=== PATIENT | female | born 1960 | race Caucasian/White ===

== ENCOUNTER → 2018-02-17 | Outpatient (CLI) | payer BC ==
[2018-02-17 15:26] VITALS: BP 116/80; PULSE 82; RESP 18; TEMP 98.1; BMI 31.9
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
== END ==
LOC: WWCWWP 15:06
PROVIDERS: ATTEND Surgery
DX: Z53.9 Procedure and treatment not carried out, unspecified reason (principal)

== ENCOUNTER → 2018-03-17 | Day surgery (SDC) | payer BC ==
[2018-03-17 07:12] VITALS: PULSE 71; RESP 16; BMI 32.4
--- NOTE | 2018-03-17 08:54 | P.PCN ---
Date of Procedure: 03/17/18 Preoperative Diagnosis: Mammographic abnormality left breast Postoperative Diagnosis: Same Procedure(s) Performed: Left breast stereotactic core biopsy of upper outer quadrant increasing pleomorphic calcifications in the segmental distribution Anesthesia: local Surgeon: Kassandra Wilson Estimated Blood Loss (ml): 1 Pathology: other (Breast tissue) Condition: stable Disposition: same day Indications for Procedure: The patient is a 57-year-old white female who presented with a mammographic abnormality in her left breast. She was noted to have increasing pleomorphic calcifications in a segmental distribution in the upper outer quadrant area of the breast. The patient was seen in consultation and risks and benefits of stereotactic core biopsy were discussed with the patient. Of concern is the fact that the patient does have bilateral breast implants making the stereotactic procedure somewhat more challenging. The patient understands the risks and benefits and wishes to proceed. Operative Findings: Microcalcifications left breast Description of Procedure: The patient was taken to the stereotactic core room and positioned on the low rad table. It was determined to do a lateral to medial approach to target the area of concern. The area of concern was identified and stereo-pairs were obtained. The breast was prepped using Betadine. 1% lidocaine was used to anesthetize the area of concern. Approximately 20 mL of 1% lidocaine was utilized. A 9-gauge vacuum assisted rotating core biopsy needle was driven to the correct coordinates. Pre-and post-fire radiographs were obtained. 12 core specimens were obtained. Radiograph of the specimens revealed several small microcalcifications. The specimen was reviewed with radiology and we determined to take additional cores from the 3 to 9 o'clock position of the left breast. Radiograph of the additional cores did not reveal additional microcalcifications. It was felt that the area had been sampled and we would send the specimen for pathology and await their evaluation. A Top-Hat secure marilu clip was left in place and noted to be in the correct location. The patient tolerated the procedure in stable condition. Specimen was sent to pathology. The patient will follow up next week with Dr. Quinones.
[2018-03-17 09:36] VITALS: BP 122/77; TEMP 97.7
--- NOTE | 2018-03-17 11:25 | MM ---
EXAMINATION TYPE: MG stereo VAD BX LT DATE OF EXAM: 03/17/2018 COMPARISON: Outside examinations dating back to 03/15/2015 CLINICAL HISTORY: Left breast calcifications for which stereotactic biopsy was recommended. TECHNIQUE: Stereotactic guided core biopsy of left breast. FINDINGS: The procedure of stereotactic guided core biopsy was explained to the patient. Benefits, a lternatives, and risks were discussed. An informed consent was then obtained. Preprocedural timeout was performed. On prefire localization images during the procedure the majority of these calcifications were noted t o layer dependently with a teacup appearance compatible with benign milk of calcium. Posterior latera l calcifications were targeted that maintained a more rounded morphology. The shortness pathway for b iopsy was chosen. Calcifications are best identified on lateral to medial approach. I performed the l ocalization, then surgeon, Dr. Joni Edmondson performed the remainder of the procedure. A vacuum assiste d biopsy gun was used to obtain multiple core samples. The patient tolerated the procedure well without any immediate complication. The patient was kept in the radiology department for short stay after the procedure and then discharged home in stable condi tion. Targeted calcifications are identified in specimen mammogram. Post biopsy mammogram shows the clip to appear in satisfactory position relative to the targeted area of concern on the preprocedure images. IMPRESSION: SUCCESSFUL, UNCOMPLICATED STEREOTACTIC GUIDED CORE BIOPSY OF CALCIFICATIONS IN THE UPPER OUTER QUADRA NT OF THE LEFT BREAST, FULL PATHOLOGY RESULTS TO FOLLOW. OF NOTE THE MAJORITY OF THE CALCIFICATIONS DURING THE PROCEDURE APPEARED IS BENIGN MILK OF CALCIUM. BIOPSIED CALCIFICATIONS MAINTAINED A ROUNDED APPEARANCE THE ML VIEW AND ARE SLIGHTLY MORE SUSPICIOUS.
== END ==
LOC: RADMAMWWP 07:00
PROVIDERS: ATTEND Surgery
DX: N60.12 Diffuse cystic mastopathy of left breast (principal)
CPT/HCPCS: 88305; 19081; A4648; J2001

== ENCOUNTER → 2018-03-24 | Outpatient (CLI) | payer BC ==
[2018-03-24 10:23] VITALS: BP 109/71; PULSE 71; RESP 18; TEMP 97.8; BMI 32.1
--- NOTE | 2018-03-24 10:46 | P.PN ---
Subjective Progress Note Date: 03/24/18 Keyonna is a 57-year-old white female who is status [place] [id number]. Her pathology revealed fibrocystic changes including fibrosis and small cysts. She had 2 sites biopsied and both were benign as noted. No calcifications were identified in the specimens and on radiograph of this tissue blocks no residual microcalcifications were identified. Her case has been reviewed with radiology there is some thought that the area originally sampled might represent milk of calcium and therefore the radiographs specimen did not reveal calcifications. Keyonna has no complaints related to her recent biopsy. I discussed with she and her and her daughter that the specimen is of questionable adequacy. I have given them the option of a repeat stereo biopsy versus a needle local excisional biopsy. They do not want to undergo a repeat stereo biopsy. They wish to proceed with a needle localization and excisional biopsy of the area of concern. I discussed the risks and benefits of this procedure and they wish to proceed. Objective - Constitutional General appearance: Present: average body habitus - EENT Eyes: Present: EOMI ENT: Present: hearing grossly normal - Neck Neck: Present: normal ROM - Respiratory Respiratory: bilateral: CTA - Cardiovascular Rhythm: regular Heart sounds: normal: S1, S2 - Gastrointestinal General gastrointestinal: Present: soft - Integumentary Integumentary Comment(s): core biopsy site right breast mild ecchymosis no evidence of infection no hematoma - Psychiatric Psychiatric: Present: A&O x's 3, appropriate affect, intact judgment & insight - Labs Labs: Patient's mammogram again reviewed with radiology, Dr. Lou. The recommendation is for repeat sampling of the area of microcalcifications. Although this may represent milk of calcium a larger tissue specimen was recommended. I've also discussed the case with pathology who again states that no calcium was noted in the specimen. Assessment and Plan Assessment: Impression: 1. Radiographic abnormality left breast, pathologic findings felt to be discordant with radiographic findings 2. Patient doing well post-core biopsy Plan: 1. A needle localization excisional biopsy of area of concern in the left breast/we are interested in sampling the microcalcifications and not necessarily the area where the clip was left after the core biopsy Risk and benefits of the procedure were discussed with the patient and her family and they wish to proceed with a needle localization and open biopsy. There were given the option of a repeat stereo biopsy and declined. They understand the risks and benefits including bleeding and infection reaction to the anesthetic the possibility that the area may not be sampled and wished to proceed. They also understand that the patient has a implant in place and risk of injury to the implant. Cc:Dr. Jimenez
== END ==
LOC: WWCWWP 09:13
PROVIDERS: ATTEND Surgery
DX: Z53.9 Procedure and treatment not carried out, unspecified reason (principal)

== ENCOUNTER → 2018-04-07 | Outpatient (CLI) | payer BC ==
[2018-04-07 16:21] VITALS: BP 134/83; PULSE 63; RESP 18; TEMP 96.5; BMI 32.5
--- NOTE | 2018-04-07 16:28 | P.PN ---
Progress Note - Text Progress Note Date: 04/07/18 Keyonna is a 57-year-old white female who is status post her tactic core biopsy of the left breast on 03-24-18. The patient has noted that one of the biopsy sites is slightly elevated and there is concern that is the marker which is protruding. She comes in for evaluation today. She is scheduled for needle local excisional biopsy on [id number]. The patient is had no fever or chills. She does have some irritation at the site of the stereotactic biopsy area. Physical examination Examination of the stereotactic core site reveals a slight area of protuberance at one of the stereo sites. Attempts to grasp this with a forceps was not successful. This is very minimally elevated and any surface elevation of At the skin surface was trying to grasp this area. There is no evidence of any infection. Impression: 1. Status post her tactic core biopsy of the left breast the patient has the marker clip near the surface but not able to be grasped at this time Plan: 1. The patient is scheduled for needle local excisional biopsy of the area of concern in the left breast at that time we will be sure that this area is addressed with removal of the clip near the surface. CC:
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
== END ==
LOC: WWCWWP 15:23
PROVIDERS: ATTEND Surgery
DX: Z53.9 Procedure and treatment not carried out, unspecified reason (principal)

== ENCOUNTER 2018-04-26 08:49 | Day surgery (SDC) | payer BC ==
[2018-04-22 09:56] VITALS: BMI 32.1
[~2018-04-26 08:49] MED LIST: DEXAMETHASONE SOD PHOSPHATE 10 MG/ML 1 ML VIAL IV ONE; HYDROmorphone 0.5 MG/0.5 ML SYRINGE IVP PRN; LACTATED RINGERS 1,000 ML IV SCH; MIDAZOLAM (PF) 2 MG/2 ML VIAL IV PRN; ONDANSETRON 4 MG/2 ML VIAL IVP ONE; Pre Op ABX Message 1 EACH MISC MISCELLANE ONE; SCOPOLAMINE 1.5MG/72HR PATCH TRANSDERM ONE
[2018-04-26] MEDS ORDERED: LACTATED RINGERS 1,000 ML IV ONE (09:22)
[2018-04-26] MEDS ORDERED: LIDOCAINE 1% 20 ML VIAL (10MG/ML) FOR IV START INTRADERMA ONE (09:23)
[2018-04-26] MEDS ORDERED: ALPRAZolam 0.5 MG TAB PO ONE (09:28)
[2018-04-26] MEDS ORDERED: LIDOCAINE 1% INJ 10MG/ML (20 ML MDV) SQ ONE ×2 (10:45→13:35)
[2018-04-26] MEDS ORDERED: SODIUM BICARB 4% 5 ML VIAL (0.48 MEQ/ML) MISCELLANE ONE (10:45)
[2018-04-26] MEDS ORDERED: HEPARIN SODIUM,PORCINE 5,000 UNIT/ML 1 ML VIAL SQ ONE (11:53)
[2018-04-26] MEDS ORDERED: fentaNYL (PF) 50 MCG/ML 2 ML AMP ONE (13:18)
[2018-04-26] MEDS ORDERED: MIDAZOLAM 2 MG/2 ML VIAL ONE (13:18)
[2018-04-26] MEDS ORDERED: SUCCINYLCHOLINE CHLORIDE 100 MG/5 ML SYR IV ONE (13:18)
[2018-04-26] MEDS ORDERED: PROPOFOL 10 MG/ML 20 ML VIAL IV ONE (13:18)
[2018-04-26] MEDS ORDERED: LIDOCAINE 1% INJ 10MG/ML (20 ML MDV) ONE (13:18)
--- NOTE | 2018-04-26 14:09 | P.OP ---
Date of Procedure: 04/26/18 Preoperative Diagnosis: Discordant left breast core biopsy, skin lesion left breast has resolved, no skin biopsy will be done Postoperative Diagnosis: Same Procedure(s) Performed: Needle localization excisional biopsy left breast lesion Anesthesia: MAKENNA Surgeon: Kassandra Wilson Estimated Blood Loss (ml): 10 IV fluids (ml): 400 Pathology: other (Left breast tissue) Condition: stable Disposition: PACU Indications for Procedure: Patient had a stereotactic core biopsy for an area of concern in the left breast , pathology was felt to be discordant and therefore needle local excisional biopsy was recommended, patient initially had a skin lesion near the area of the core biopsy which has resolved and no skin biopsy will be performed Operative Findings: Dense breast tissue Description of Procedure: The patient was initially taken to the radiology department where needle localization of an area of concern in the left breast was performed. Patient was then brought to the operating room. The area of concern in the breast was prepped and draped in a sterile fashion following induction of general anesthesia. Wide excision of the area was performed. An additional section of tissue was taken in the posterior area. Hemostasis was attained using electrocautery device. The area was marked using titanium clips. The specimen was painted for orientation. The specimen was sent to x-ray to confirm that the area of concern had been obtained. After assured that hemostasis was attained the deep tissues were closed using 3-0 Vicryl suture. Was necessary to mobilize approximately a 3 x 3 cm area to facilitate adequate cosmesis. Again after assured that hemostasis was attained the skin was closed using a 4- 0 Monocryl. The patient tolerated the procedure in stable condition.
--- NOTE | 2018-04-26 14:11 | P.DS ---
Providers Attending physician: Kassandra Wilson Primary care physician: Marybel Jimenez Plan - Discharge Summary Discharge Rx Participant: Yes New Discharge Prescriptions: No Action No Known Home Medications Discharge Medication List No Known Home Medications 03/04/18 [History] Follow up Appointment(s)/Referral(s): Kassandra Wilson MD [STAFF PHYSICIAN] - 1 Week Activity/Diet/Wound Care/Special Instructions: Do not drive today Patient may shower after 48 hours Patient to wear bra until seen by Dr. Quinones next week except when in shower Discharge Disposition: HOME SELF-CARE
--- NOTE | 2018-04-26 14:21 | MM ---
EXAMINATION TYPE: MG pre op needle loc LT, MG surgical specimen LT DATE OF EXAM: 04/26/2018 COMPARISON: Prior stereotactic guided core biopsy March 17, 2018 and older outside mammograms. CLINICAL HISTORY: Benign stereotactic guided core biopsy March 17, 2018. Patient and/or surgeon requests excision despite benign results. TECHNIQUE: Needle localization with wire placement and surgical excision of area of concern in the right breast. FINDINGS: The procedure of needle localization with wire placement and than surgical excision was explained to the patient. Benefits, alternatives, and risks were discussed. An informed consent was then obtained. Patient brought supposed clip removed by surgeon at office. Specimen radiograph shows tiny radiodense focus but not metallic density to correspond to clip. Repeat mammogram confirms clip is still stable in position posterior upper outer aspect left breast. The shortest pathway for procedure was chosen. Shortest pathway was cranial approach. The overlying skin was prepped and draped in usual sterile fashion. Lidocaine buffered with bicarbonate was used as anesthetic into the skin and subcutaneous tissue up to the level of area of concern. A 5 cm needle was used. It was placed via a cranial approach under mammographic guidance. Subsequent 90 degrees mammogram show the needle to be in satisfactory position relative to the targeted area. At this point, wire was placed and the needle was withdrawn. The wire was fixed to patient's skin. Images were marked for surgeon. The patient tolerated the procedure well without any immediate complication. The patient was kept in the radiology department for short stay after the procedure and then taken to surgery for surgical excision. Targeted clip and wire are identified in separate specimen mammograms including some surrounding benign punctate calcifications. The patient was kept in hospital for short stay after the procedure and then discharged home in stable condition. IMPRESSION: Successful, uncomplicated needle localization with wire placement and surgical excision of targeted biopsy clip in the left breast, full pathology results to follow. Low index of suspicion noted at time of procedure. Pathology Results: Benign A. LEFT BREAST, NEEDLE LOCALIZATION EXCISION: Fibrocystic changes including cysts with intraluminal calcifications, fibrosis, apocrine metaplasia, adenosis and moderate usual type ductal hyperplasia. Previous biopsy site. B. LEFT BREAST, NEW POSTERIOR MARGIN, EXCISION: Fibrocystic changes including fibrosis and cysts. Previous biopsy site changes. Recommendation Follow up mammogram of the left breast in 6 months. SELVIN
[2018-04-26 14:27] VITALS: TEMP 96.8
[2018-04-26 14:34] VITALS: RESP 16
[2018-04-26] MEDS ORDERED: HYDROcodone/APAP 5-325MG 1 EACH TAB PO ONE (15:30)
[2018-04-26 15:55] VITALS: BP 152/90; PULSE 70
== END 2018-04-26 16:08 | disposition home or self-care (01) ==
LOC: OR 08:49
PROVIDERS: ATTEND Surgery
DX: R92.0 Mammographic microcalcification found on diagnostic imaging of breast (principal); N60.12 Diffuse cystic mastopathy of left breast; Z80.3 Family history of malignant neoplasm of breast; Z80.41 Family history of malignant neoplasm of ovary; Z85.820 Personal history of malignant melanoma of skin; Z78.0 Asymptomatic menopausal state; K21.9 Gastro-esophageal reflux disease without esophagitis
CPT/HCPCS: 19125; 19281; 81025; 88307; 76098; J2250; J1644; J1100; J2405; J2001; J3010; J0330; J2704

== ENCOUNTER → 2018-05-05 | Outpatient (CLI) | payer BC ==
[2018-05-05 10:32] VITALS: BP 125/85; PULSE 57; RESP 18; TEMP 97.8; BMI 32.1
--- NOTE | 2018-05-05 10:36 | P.PN ---
Subjective Progress Note Date: 05/05/18 Principal diagnosis: Fibrocystic breast changes Keyonna is a 57-year-old white female status post left breast. Stero-tactic biopsy after which it was recommended she undergo needle local excisional biopsy of area of concern in the left breast. This was performed on 04-26-18. The area of concern was felt to be adequately removed. Pathology was benign. The patient is doing well at this time without complaints. The patient does have a persistent left axillary fullness for which she has been evaluated in the past until there was a lipoma. Objective - Vital Signs Vital signs: Intake & Output 05/04/18 05/05/18 05/05/18 18:59 06:59 18:59 Weight 88.904 kg - Exam BMI 32.1 - Constitutional General appearance: Present: obese - EENT Eyes: Present: EOMI ENT: Present: hearing grossly normal - Respiratory Respiratory: - Cardiovascular Rhythm: regular Heart sounds: - Musculoskeletal Musculoskeletal: Present: gait normal - Psychiatric Psychiatric: Present: A&O x's 3, appropriate affect, intact judgment & insight - Additional findings Additional findings: Left breast: Incision clean and dry Assessment and Plan Assessment: Impression: 1. Fibrocystic changes left breast 2. Patient doing well status post left breast excisional biopsy 3. Probable lipoma under the left axilla Plan: 1. Patient will follow-up regarding left axillary soft tissue lesion in approximately 6 weeks 2. Patient doing well status post left breast biopsy 3. Left breast mammogram in 6 months time with physician exam at that time CC: Dr. Jimenez
== END | disposition home or self-care (01) ==
LOC: WWCWWP 09:29
PROVIDERS: ATTEND Surgery
DX: Z53.9 Procedure and treatment not carried out, unspecified reason (principal)

== ENCOUNTER 2018-05-31 10:31 | Day surgery (SDC) | payer BC ==
[~2018-05-31 10:31] MED LIST changes: +HEPARIN SODIUM,PORCINE 5,000 UNIT/ML 1 ML VIAL SQ ONE; -HYDROmorphone 0.5 MG/0.5 ML SYRINGE IVP PRN; +LIDOCAINE 1% 20 ML VIAL (10MG/ML) FOR IV START INTRADERMA PRN; -MIDAZOLAM (PF) 2 MG/2 ML VIAL IV PRN; +MIDAZOLAM 2 MG/2 ML VIAL IV PRN
[2018-05-31] MEDS ORDERED: LACTATED RINGERS 1,000 ML IV ONE ×2 (11:04→17:01)
[2018-05-31] MEDS ORDERED: HEPARIN SODIUM,PORCINE 5,000 UNIT/ML 1 ML VIAL SQ ONE (13:53)
[2018-05-31] MEDS ORDERED: MIDAZOLAM 2 MG/2 ML VIAL ONE (14:54)
[2018-05-31] MEDS ORDERED: ceFAZolin 1,000 MG VIAL ONE (14:54)
[2018-05-31] MEDS ORDERED: SUCCINYLCHOLINE CHLORIDE 100 MG/5 ML SYR IV ONE (14:54)
[2018-05-31] MEDS ORDERED: LIDOCAINE 1% INJ 10MG/ML (20 ML MDV) ONE (14:54)
[2018-05-31] MEDS ORDERED: fentaNYL (PF) 50 MCG/ML 2 ML AMP ONE (14:54)
[2018-05-31] MEDS ORDERED: PROPOFOL 10 MG/ML 20 ML VIAL IV ONE (14:54)
[2018-05-31] MEDS ORDERED: SODIUM CHLORIDE 0.9% 50 ML with ceFAZolin 2,000 MG IV ONE ×2 (15:25)
[2018-05-31] MEDS ORDERED: LIDOCAINE 1% INJ 10MG/ML (20 ML MDV) SQ ONE (16:17)
--- NOTE | 2018-05-31 16:18 | P.OP ---
Date of Procedure: 05/31/18 Preoperative Diagnosis: Soft tissue swelling under left arm Postoperative Diagnosis: Same Procedure(s) Performed: Excision lipomatous-like tissue under left arm Anesthesia: MAKENNA Surgeon: Kassandra Wilson Estimated Blood Loss (ml): 5 IV fluids (ml): 700 Pathology: other (Tissue under her left arm) Condition: stable Disposition: PACU Indications for Procedure: Area of swelling under left arm felt to be most likely lipoma of concern to the patient, uncomfortable and of questionable change in size Operative Findings: Fibrofatty tissue consistent with lipoma Description of Procedure: The patient was taken to the operating room and following induction of anesthesia the left axilla and upper arm were prepped and draped in a sterile fashion. An incision was made over the area of palpable and visible swelling. Fatty tissue was identified. A lesion approximately 5 x 4 cm in size was removed. There was resolution of the area of swelling. After we were assured that hemostasis was attained the incision was closed using a 4-0 Monocryl. Skin was further reinforced with a 4-0 nylon. It was not possible to close the deeper tissue secondary to fatty tissue in this area. The patient tolerated the procedure in stable condition. All instrument and sponge counts were correct at the end of the case. The lesion was in the subcutaneous tissue and appeared to be consistent with lipomatous/fatty tissue. The area was approximately 5 x 4 cm in size.
--- NOTE | 2018-05-31 16:21 | P.DS ---
Providers Attending physician: Kassandra Wilson Primary care physician: Marybel Jimenez Plan - Discharge Summary Discharge Rx Participant: Yes New Discharge Prescriptions: No Action No Known Home Medications Discharge Medication List No Known Home Medications 03/04/18 [History] Follow up Appointment(s)/Referral(s): Kassandra Wilson MD [STAFF PHYSICIAN] - 1 Week Activity/Diet/Wound Care/Special Instructions: patient may shower after [address] tomorrow if not taking any opioid narcotics Discharge Disposition: HOME SELF-CARE
[2018-05-31 16:36] VITALS: TEMP 97.6
[2018-05-31] MEDS: HYDROmorphone 0.5 MG/0.5 ML SYRINGE IVP PRN ×2 (16:52→16:59)
[2018-05-31 17:05] VITALS: RESP 16
[2018-05-31 18:07] VITALS: BMI 33.2
[2018-05-31 18:30] VITALS: BP 126/79; PULSE 65
== END 2018-05-31 19:03 | disposition home or self-care (01) ==
LOC: OR 10:31 → 1SOBS 16:14 → OR 19:03
PROVIDERS: ATTEND Surgery
DX: R22.9 Localized swelling, mass and lump, unspecified (principal); K21.9 Gastro-esophageal reflux disease without esophagitis; Z79.899 Other long term (current) drug therapy
CPT/HCPCS: 11406; 81025; 88304; J2250; J1644; J1100; J2405; J0690 ×2; J2001; J3010; J0330; J2704; J1170

== ENCOUNTER → 2018-06-09 | Outpatient (CLI) | payer BC ==
[2018-06-09 16:08] VITALS: BP 113/78; PULSE 98; RESP 18; TEMP 97; BMI 32.1
--- NOTE | 2018-06-09 16:29 | P.PN ---
Progress Note - Text Progress Note Date: 06/09/18 Keyonna is a 57-year-old white female status post excision of a soft tissue lesion under the left arm on . Pathology was consistent with a lipoma. The patient is doing well at this time. Incision clean and dry no evidence of any infection well-healed Impression: 1. Lobulated adipose tissue consistent with lipoma left axillary area 2. Patient status post left breast biopsy which was benign Plan: 1. Repeat left breast mammogram related to biopsy in September with physician exam at that time 2. Patient to call sooner if she has any questions of concern CC: Dr. Jimenez
== END ==
LOC: WWCWWP 15:42
PROVIDERS: ATTEND Surgery
DX: Z53.9 Procedure and treatment not carried out, unspecified reason (principal)

== ENCOUNTER → 2018-10-25 | Outpatient (CLI) | payer BC ==
--- NOTE | 2018-10-26 09:16 | MM ---
Reason for exam: follow-up at short interval from prior study. Last mammogram was performed 9 months ago. History: Patient is postmenopausal. Family history of breast cancer in paternal grandmother at age 60. Benign MG pre op needle loc LT of the left breast, April 26, 2018. Benign MG stereo VAD BX LT of the left breast, March 17, 2018. Retro-pectoral saline implants in both breasts, 1994. Physical Findings: Nurse did not find any significant physical abnormalities on exam. MG Diag Mamm Implants SHANELL w CAD Bilateral CC, MLO, and ID view(s) were taken. Prior study comparison: January 14, 2018, mammogram. May 21, 2017, mammogram. May 12, 2017, mammogram. March 24, 2016, mammogram. March 15, 2015, mammogram. The breast tissue is heterogeneously dense. This may lower the sensitivity of mammography. No suspicious abnormality. Prepectoral saline implants. Post surgical change from benign excisional biopsy in the upper outer quadrant. These results were verbally communicated with the patient and result sheet given to the patient on 10/25/18. ASSESSMENT: Benign, BI-RAD 2 RECOMMENDATION: Routine screening mammogram of both breasts in 1 year.
== END | disposition home or self-care (01) ==
LOC: RADMAMWWP 11:01
PROVIDERS: ATTEND Surgery
DX: R92.8 Other abnormal and inconclusive findings on diagnostic imaging of breast (principal)
CPT/HCPCS: 77066

== ENCOUNTER → 2018-10-28 | Outpatient (CLI) | payer BC ==
[2018-10-28 10:54] VITALS: BP 135/85; PULSE 66; RESP 16; TEMP 97.8; BMI 33.1
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
== END | disposition home or self-care (01) ==
LOC: WWCWWP 10:40
PROVIDERS: ATTEND Surgery
DX: Z53.9 Procedure and treatment not carried out, unspecified reason (principal)

== ENCOUNTER → 2019-10-30 | Outpatient (CLI) | payer BC ==
--- NOTE | 2019-10-30 11:57 | MM ---
Reason for exam: additional evaluation requested from prior study. Last mammogram was performed 1 year ago. History: Patient is postmenopausal. Family history of breast cancer in paternal grandmother at age 60. Benign MG pre op needle loc LT of the left breast, April 26, 2018. Benign MG stereo VAD BX LT of the left breast, March 17, 2018. Retro-pectoral saline implants in both breasts, 1994. Physical Findings: Nurse did not find any significant physical abnormalities on exam. MG Diag Mamm Implants SHANELL w CAD Bilateral CC, MLO, and ID view(s) were taken. Prior study comparison: October 25, 2018, bilateral MG diag mamm implants SHANELL w CAD. May 12, 2017, mammogram. Finding: There are regional, fine calcifications in the upper quadrant, posterior position of the right breast, MLO view over profile appear to be present previously. Short term re-evaluation recommended may be better visualized current exam. Bilateral breast prothesis. These results were verbally communicated with the patient and result sheet given to the patient on 10/30/19. ASSESSMENT: Probably benign, BI-RAD 3 RECOMMENDATION: Follow-up diagnostic mammogram of the right breast in 6 months.
== END | disposition home or self-care (01) ==
LOC: RADMAMWWP 11:00
PROVIDERS: ATTEND Surgery
DX: R92.8 Other abnormal and inconclusive findings on diagnostic imaging of breast (principal); Z98.82 Breast implant status
CPT/HCPCS: 77066

== ENCOUNTER → 2019-11-10 | Outpatient (CLI) | payer BC ==
[2019-11-10 12:20] VITALS: BP 113/79; PULSE 60; RESP 18; TEMP 98.1
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
== END | disposition home or self-care (01) ==
LOC: WWCWWP 11:40
PROVIDERS: ATTEND Surgery
DX: Z53.9 Procedure and treatment not carried out, unspecified reason (principal)

== ENCOUNTER → 2020-05-02 | Outpatient (CLI) | payer BC ==
--- NOTE | 2020-05-02 12:10 | MM ---
Reason for exam: follow-up at short interval from prior study. Last mammogram was performed 6 months ago. History: Patient is postmenopausal. Family history of breast cancer in paternal grandmother at age 60. Benign MG pre op needle loc LT of the left breast, April 26, 2018. Benign MG stereo VAD BX LT of the left breast, March 17, 2018. Retro-pectoral saline implants in both breasts, 1994. Physical Findings: Nurse Summary: 1cm nodule in the right breast at 9 o'clock (nurse adam). MG 3D Diag Mammo Imp W/Cad RT CC, MLO, and ID view(s) were taken of the right breast. Prior study comparison: October 30, 2019, bilateral MG diag mamm implants SHANELL w CAD. October 25, 2018, bilateral MG diag mamm implants SHANELL w CAD. There are scattered fibroglandular densities. There is no dominant lesion. Subpectoral implant right breast. These results were verbally communicated with the patient and result sheet given to the patient on 05/02/20. ASSESSMENT: Incomplete: need additional imaging evaluation, BI-RAD 0 RECOMMENDATION: Ultrasound of the right breast. (palpable abnormality upper outer quadrant)
--- NOTE | 2020-05-02 12:11 | USB ---
Reason for exam: additional evaluation requested from abnormal screening. History: Patient is postmenopausal. Family history of breast cancer in paternal grandmother at age 60. Benign MG pre op needle loc LT of the left breast, April 26, 2018. Benign MG stereo VAD BX LT of the left breast, March 17, 2018. Retro-pectoral saline implants in both breasts, 1994. US Breast Limited RT Right limited breast ultrasound including focal area of concern, retroareolar and axilla demonstrates no cystic or solid lesion seen. These results were verbally communicated with the patient and result sheet given to the patient on 05/02/20. ASSESSMENT: Negative, BI-RAD 1 RECOMMENDATION: Routine screening mammogram of both breasts in 5 months. Back on schedule for September 2020.
== END ==
LOC: RADMAMWWP 10:58
PROVIDERS: ATTEND Surgery
DX: R92.8 Other abnormal and inconclusive findings on diagnostic imaging of breast (principal); Z78.0 Asymptomatic menopausal state; Z80.3 Family history of malignant neoplasm of breast
CPT/HCPCS: 77061; 77065

== ENCOUNTER → 2020-05-09 | Outpatient (CLI) | payer BC ==
[2020-05-09 11:10] VITALS: BP 120/87; PULSE 75; RESP 18; TEMP 98.1
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
== END ==
LOC: WWCWWP 10:45
PROVIDERS: ATTEND Surgery
DX: N60.11 Diffuse cystic mastopathy of right breast (principal); N60.12 Diffuse cystic mastopathy of left breast

== ENCOUNTER → 2020-10-02 | Outpatient (CLI) | payer BC ==
--- NOTE | 2020-10-07 12:42 | MM ---
Reason for exam: screening (asymptomatic). Last mammogram was performed 5 months ago. History: Patient is postmenopausal. Family history of breast cancer in paternal grandmother at age 60. Benign MG pre op needle loc LT of the left breast, April 26, 2018. Benign MG stereo VAD BX LT of the left breast, March 17, 2018. Retro-pectoral saline implants in both breasts, 1994. Physical Findings: A clinical breast exam by your physician is recommended on an annual basis and results should be correlated with mammographic findings. MG 3D Screen Mammo Imp/Cad Bilateral CC, MLO, and ID view(s) were taken. Prior study comparison: May 02, 2020, right breast MG 3d diag mammo imp w/cad RT. October 30, 2019, bilateral MG diag mamm implants SHANELL w CAD. Bilateral breast prothesis. Post surgical changes left breast. No significant changes when compared with prior studies. ASSESSMENT: Benign, BI-RAD 2 RECOMMENDATION: Routine screening mammogram of both breasts in 1 year.
== END | disposition home or self-care (01) ==
LOC: RADMAMWWP 10:54
PROVIDERS: ATTEND Surgery
DX: Z12.31 Encounter for screening mammogram for malignant neoplasm of breast (principal); Z78.0 Asymptomatic menopausal state; Z80.3 Family history of malignant neoplasm of breast
CPT/HCPCS: 77063; 77067

== ENCOUNTER → 2020-10-10 | Outpatient (CLI) | payer BC ==
[2020-10-10 10:38] VITALS: BP 124/86; PULSE 68; RESP 18; TEMP 97.7
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
== END ==
LOC: WWCWWP 10:29
PROVIDERS: ATTEND Surgery
DX: N60.11 Diffuse cystic mastopathy of right breast (principal); K51.90 Ulcerative colitis, unspecified, without complications

== ENCOUNTER → 2021-10-06 | Outpatient (CLI) | payer BC ==
--- NOTE | 2021-10-07 08:25 | MM ---
Reason for Exam: Screening (asymptomatic). Last screening mammogram was performed 12 month(s) ago. Patient History: Menarche at age 17. First Full-Term at age 22. Postmenopausal. 04/26/2018, Benign Core Biopsy on the left side. 03/17/2018, Benign Core Biopsy on the left side. 1993, Bilateral Implants. Paternal grandmother had breast cancer, age 60. Risk Values: Sona 5 year model risk: 1.7%. NCI Lifetime model risk: 9.1%. Prior Study Comparison: 10/30/2019 Bilateral Diagnostic Mammogram, [facility]. 05/02/2020 Right Diagnostic Mammogram, [facility]. 10/02/2020 Bilateral Screening Mammogram, [facility]. Tissue Density: The breast tissue is heterogeneously dense. This may lower the sensitivity of mammography. Findings: Analyzed By CAD. There is no suspicious group of microcalcifications or new suspicious mass in either breast. Overall Assessment: Negative, BI-RAD 1 Management: Screening Mammogram of both breasts in 1 year. A clinical breast exam by your physician is recommended on an annual basis and results should be correlated with mammographic findings. Electronically signed and approved by: Zachery Jiang M.D. Radiologis
== END | disposition home or self-care (01) ==
LOC: RADMAMWWP 10:46
PROVIDERS: ATTEND Surgery
DX: Z12.31 Encounter for screening mammogram for malignant neoplasm of breast (principal); Z78.0 Asymptomatic menopausal state; Z80.3 Family history of malignant neoplasm of breast
CPT/HCPCS: 77063; 77067

== ENCOUNTER → 2022-10-07 | Outpatient (CLI) | payer BC ==
--- NOTE | 2022-10-08 08:06 | MM ---
Reason for Exam: Screening (asymptomatic). Last screening mammogram was performed 12 month(s) ago. Patient History: Menarche at age 17. First Full-Term at age 22. Postmenopausal. 04/26/2018, Benign Core Biopsy on the left side. 03/17/2018, Benign Core Biopsy on the left side. 1994, Bilateral Implants. Paternal grandmother had breast cancer, age 60. Paternal aunt had ovarian cancer, age 35. Sister had ovarian cancer, age 35. Risk Values: Sona 5 year model risk: 1.8%. NCI Lifetime model risk: 8.9%. Prior Study Comparison: 05/02/2020 Right Diagnostic Mammogram, [facility]. 10/02/2020 Bilateral Screening Mammogram, [facility]. 10/06/2021 Bilateral MG 3D screen mammo imp/cad., [facility]. Tissue Density: There are scattered fibroglandular densities. Findings: Analyzed By CAD. There is no suspicious group of microcalcifications or new suspicious mass in either breast. Postsurgical changes of the left breast. Bilateral breast implants. Overall Assessment: Benign, BI-RAD 2 Management: Screening Mammogram of both breasts in 1 year. A clinical breast exam by your physician is recommended on an annual basis and results should be correlated with mammographic findings. Note on Sona scores and lifetime risk: 1. A Sona score greater than 3% is considered moderate risk. If this is the case, consider specialist referral to assess eligibility for a risk reducing agent. If overall lifetime risk for the development of breast cancer is 20% or higher, the patient may qualify for future screening with alternating mammogram and breast MRI. Electronically signed and approved by: Lowell Valerio D.O.
== END | disposition home or self-care (01) ==
LOC: RADMAMWWP 09:05
PROVIDERS: ATTEND Surgery
DX: Z12.31 Encounter for screening mammogram for malignant neoplasm of breast (principal); Z78.0 Asymptomatic menopausal state; Z80.3 Family history of malignant neoplasm of breast; Z80.41 Family history of malignant neoplasm of ovary
CPT/HCPCS: 77063; 77067

== ENCOUNTER → 2022-10-09 | Outpatient (CLI) | payer BC ==
[2022-10-09 10:03] VITALS: BP 139/96; PULSE 64; RESP 16; TEMP 97.6
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
== END ==
LOC: WWCWWP 09:46
PROVIDERS: ATTEND Surgery
DX: N60.11 Diffuse cystic mastopathy of right breast (principal); N60.12 Diffuse cystic mastopathy of left breast; Z80.3 Family history of malignant neoplasm of breast

== ENCOUNTER → 2023-10-11 | Outpatient (CLI) | payer BC ==
--- NOTE | 2023-11-03 08:11 | MM ---
Reason for Exam: Hx of breast augmentation, asymptomatic. Last screening mammogram was performed 12 month(s) ago. Patient History: Menarche at age 17. First Full-Term at age 22. Postmenopausal. 04/26/2018, Benign Core Biopsy on the left side. 03/17/2018, Benign Core Biopsy on the left side. 1994, Bilateral Implants. Paternal grandmother had breast cancer, age 60. Paternal aunt had ovarian cancer, age 35. Sister had ovarian cancer, age 35. Risk Values: Sona 5 year model risk: 1.8%. NCI Lifetime model risk: 8.7%. Prior Study Comparison: 10/02/2020 Bilateral Screening Mammogram, [facility]. 10/06/2021 Bilateral MG 3D screen mammo imp/cad., [facility]. 10/07/2022 Bilateral MG screening mammo implant/CAD, [facility]. Tissue Density: The breasts are heterogeneously dense, which may obscure small masses. Findings: Analyzed By CAD. There is no suspicious group of microcalcifications or new suspicious mass in either breast. Asymmetric density inner margin right breast stable from 2019. Postsurgical changes involving the bilateral breasts. Surgical clips upper margin left breast. Overall Assessment: Benign, BI-RAD 2 Management: Screening Mammogram of both breasts in 1 year. . Patient should continue monthly self-breast exams. A clinical breast exam by your physician is recommended on an annual basis. This exam should not preclude additional follow-up of suspicious palpable abnormalities. Note on Sona scores and lifetime risk: 1. A Sona score greater than 3% is considered moderate risk. If this is the case, consider specialist referral to assess eligibility for a risk reducing agent. 2. If overall lifetime risk for the development of breast cancer is 20% or higher, the patient may qualify for future screening with alternating mammogram and breast MRI. Electronically signed and approved by: Rao Snowden M.D. Radiologis
== END | disposition home or self-care (01) ==
LOC: RADMAMWWP 12:00
PROVIDERS: ATTEND Surgery
DX: Z12.31 Encounter for screening mammogram for malignant neoplasm of breast
CPT/HCPCS: 77063; 77067

== ENCOUNTER → 2023-11-26 | Outpatient (CLI) | payer BC ==
[2023-11-26 14:37] VITALS: BP 128/77; PULSE 71; RESP 16; TEMP 98.4
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
== END ==
LOC: WWCWWP 14:03
PROVIDERS: ATTEND Surgery
DX: R92.1 Mammographic calcification found on diagnostic imaging of breast (principal); N60.11 Diffuse cystic mastopathy of right breast; N60.12 Diffuse cystic mastopathy of left breast; Z80.3 Family history of malignant neoplasm of breast